=== PATIENT | male | born 1955 ===

== ENCOUNTER 2023-11-01 23:26 | Inpatient (IN) | payer MEDICARE ==
[~2023-11-01] VITALS: Ht 172.7 cm; Wt 55.4 kg
[2023-11-02] VITALS (230 sets, daily range): BP systolic 10–139; BP diastolic 61–86; PULSE 71–89; TEMP 97.8–99.9; O2SAT 72–100
--- NOTE | 2023-11-02 02:45 | NUR ---
Vancomycin Initial Dosing Pharmacy Note Ordering provider: Cece Tucker MD Indication/duration: LLL HAP x 7 days Relevant comorbidities: HTN, DM, COPD, Chronic hypoxic resp. failure LABS: (From OSH) WBC = 15.3, SCr = 0.7, Tmax = 102.3 Recommendation: Will draw troughs and follow levels. Loading dose: 1.25 grams at OSH on 11/01 @ 21:29 Maintenance dose: 1 gram every 12 hours Trough goal: 15-20 ug/mL
[2023-11-02] MEDS ORDERED: COREG 3.123.125 MG/T PO (03:06)
[2023-11-02] MEDS ORDERED: INSULIN LI100 UNIT/2 (03:07)
[2023-11-02] MEDS ORDERED: BASAGLAR K100 UNIT/1 SQ (03:07)
[2023-11-02] MEDS ORDERED: LIPITOR 40MG TA40 MG PO (03:08)
[2023-11-02] MEDS ORDERED: FLOMAX 0.40.4 MG/CAP PO (03:09)
[2023-11-02] MEDS ORDERED: INSULIN LI100 UNIT/1 (03:10)
[2023-11-02] MEDS ORDERED: ASPIRIN 81M81 MG/TA2 PO (03:10)
[2023-11-02] MEDS ORDERED: LEVEMIR FLEX100 U/ML (03:10)
[2023-11-02] MEDS ORDERED: LANTUS SOLOS100 U/ML SQ (03:19)
[2023-11-02] MEDS ORDERED: HUMALOG KW200 UNIT/1 SQ (03:20)
[2023-11-02 04:22] LABS: TRICYCLIC ANTIDEPRESS URINE NEGATIVE
[2023-11-02 06:26] LABS: HEMOGLOBIN 11.3 g/dl (13.5-18.0); MEAN CELL VOLUME 86 fl (80.0-100.0); MEAN CORPUSCULAR HEMOGLOBIN 28 pg (27-31); MEAN CORPUSCULAR HGB CONC 33 g/dl (33.0-37.0); MEAN PLATELET VOLUME 9.4 fl (7.4-10.4); PLATELET COUNT 406 K/mm3 (130-400); RED BLOOD COUNT 4.02 M/mm3 (4.20-5.60); REDCELL DISTRIBUTION WIDTH-CV 15.5 % (11.5-14.5)
[2023-11-02 06:35] LABS: CALCIUM 7.8 mg/dL (8.4-10.2); CREATININE, serum 0.77 mg/dL (0.72-1.25); HEMATOCRIT 34.6 % (42.0-52.0); POTASSIUM 3.6 mmol/L (3.5-4.5)
[2023-11-02 06:49] LABS: BAND 28 % (0-10); NEUTROPHILS 55 % (42.0-75.2); PLATELET ESTIMATE INCREASED (NORMAL)
[2023-11-02 06:50] LABS: ANISOCYTOSIS 1+; LYMPHOCYTE 13 % (20.0-51.0)
--- NOTE | 2023-11-02 07:00 | NUR ---
Report received from KEVIN Joe. Reviewed gtt rate for levo. PICC being inserted at this time. Reviewed other IV gtt rates. Reviewed labs. Reviewed POC. Call lauryn bobby.
--- NOTE | 2023-11-02 14:56 | NUR ---
opinion polls survey worker was contacted to speak with patient regarding advance directives. SW met with patient with his nurse. Patient expressed he would like chest compressions if his heart were to stop but he did not wish to be intubated. Nurse expressed she will put in verbal orders reflecting patient's wishes. Patient confirmed he lives in [place] with his Sendy, P# [phone]. PCP is Dr. Lane in [place]. Preferred pharmacy is [facility] in [place] and patient has had no difficulties affording medications. Insurance is [employer]. Patient does not have a DPOA-HC and does not wish to complete one during his hospital stay. Patient has a cane that he utilizes as needed at home. Patient reports prior to hospitalization he was independent with ADLS. Patient reports he has a car to use for transportation to go to and from follow up appointments but patient does not drive at night. Patient would like to return home at time of discharge. Discharge Plan: Home
--- NOTE | 2023-11-02 16:00 | NUR ---
REPORT RECEIVED FROM KEVIN BAKER IN [facility] APPROX 1525. PT ON THE FLOOR APPROX 1600 VIA WHEELCHAIR WITH PERSONAL BELONGINGS. PT TRANSFERRED TO BED SBA THEN TO BATHROOM AND HAD A LARGE FORMED BOWEL MOVEMENT. PT ON 3L NASAL CANNULA AND LR @ 100 MLS/HR IN PURPLE PORT OF PICC. BOTH PICC PORTS FLUSH WITH BLOOD RETURN. PT HAS AN 18G IN LEFT AC, NOTHING RUNNING AT THIS TIME. VITALS STABLE AT THIS TIME. COARSE CRACKLES IN BILATERAL LUNG BASES. DEXCOM TO UPPER LEFT ARM. PT DENIES PAIN OR DISCOMFORT AT THIS TIME. MED REC DONE, PT HAS PERSONAL MEDS IN SUITCASE AND PHARMACY NOTIFIED. PHARMACY TOLD THIS NURSE TO PUT MEDS IN PTS BIN FOR THEM TO COLLECT. PT ORDERING DINNER AND DENIES NEEDS AT THIS TIME. BED IN LOWEST POSITION, CALL LIGHT IN REACH, BED ALARM ON
--- NOTE | 2023-11-02 16:07 | NUR ---
Report called to Romana BROWN on the 3rd floor. Kandace answered. Pt transferred via wheelchair to room 310.
--- NOTE | 2023-11-02 21:00 | NUR ---
Patient resting in bed. Denies any pain or needs at this time. Assessment complete. PICC in right upper arm infusign with no complications. IV in left AC flushes easily with no complications. Call light and personal items in reach. Bed in low position and bed alarm on.
[2023-11-03] VITALS (11 sets, daily range): BP systolic 107–142; BP diastolic 67–79; PULSE 67–89; TEMP 97.4–99.5
--- NOTE | 2023-11-03 06:00 | NUR ---
Patient resting in bed with eyes closed. Respirations even and unlabored. No signs of pain at this time. Call light and personal items in reach. Bed in low position and bed alarm on.
[2023-11-03 06:30] LABS: BASO # 0.1 K/mm3 (0.0-0.2); BASO % 0.6 % (0.0-2.0); EOS # 0.1 K/mm3 (0.0-0.7); EOS % 0.6 % (0.0-4.0); GRAN # 16.3 K/mm3 (1.4-6.5); GRAN % 83.8 % (42.2-75.2); LYMPH # 1.8 K/mm3 (1.2-3.4); LYMPH % 9.3 % (20.0-51.0); MEAN CELL VOLUME 87 fl (80.0-100.0); MEAN CORPUSCULAR HGB CONC 32 g/dl (33.0-37.0); MEAN PLATELET VOLUME 9.5 fl (7.4-10.4); MONO # 0.9 K/mm3 (0.1-0.6); MONO % 4.4 % (1.7-9.3); PLATELET COUNT 351 K/mm3 (130-400); RED BLOOD COUNT 3.26 M/mm3 (4.20-5.60); REDCELL DISTRIBUTION WIDTH-CV 15.9 % (11.5-14.5)
[2023-11-03 06:34] LABS: HEMATOCRIT 28.4 % (42.0-52.0); HEMOGLOBIN 9.2 g/dl (13.5-18.0); MEAN CORPUSCULAR HEMOGLOBIN 28 pg (27-31)
[2023-11-03 06:43] LABS: ALBUMIN 1.7 gm/dL (3.4-4.8); BILIRUBIN,TOTAL 0.5 mg/dL (0.2-1.2); CALCIUM 7.6 mg/dL (8.4-10.2); CREATININE, serum 0.73 mg/dL (0.72-1.25); POTASSIUM 3.7 mmol/L (3.5-4.5); TOTAL PROTEIN 4.5 gm/dL (6.2-8.1)
--- NOTE | 2023-11-03 08:30 | NUR ---
Patient is resting in bed, alert and oriented, getting fluids per ordesrs, receiving 3L O2 NC. Assessment completed, meds provided, no further needs at this time. Call light within reach.
--- NOTE | 2023-11-03 10:13 | NUR ---
Trim Setter Helper collaborated with Treatment Team to assess Patient for discharge readiness. Patient is assessed to need continued treatment and will remain INPT at this time. Patient is anticipated to discharge tomorrow pending AM rounding assessment.
--- NOTE | 2023-11-03 14:57 | NUR ---
pin worker was notified patient needs a walker. LUIS met with patient and he approved health and social care teacher to send the request to [facility]. LUIS presented the DME order to Dr. Tucker, doctor signed order. LUIS faxed supporting documentation and DME order to [facility]. LUIS was notified patient is scheduled to discharge tomorrow.
--- NOTE | 2023-11-03 20:30 | NUR ---
Patient resting in bed. Denies any pain or needs at this time. Assessment complete. PICC in right upper arm flushes easily through both ports. Call light and personal items in reach. Bed in low position and bed alarm on.
[2023-11-04] VITALS (7 sets, daily range): BP systolic 118–150; BP diastolic 76–84; PULSE 87–90; TEMP 97.8–98.4
--- NOTE | 2023-11-04 05:58 | NUR ---
Patient resting in bed with eyes closed. Respirations even and unlabored. No signs of pain or needs at this time. Patient had an uneventful night. Call light and personal items in reach. Bed in low position and bed alarm on.
[2023-11-04 06:47] LABS: BASO # 0.1 K/mm3 (0.0-0.2); BASO % 0.5 % (0.0-2.0); EOS # 0.2 K/mm3 (0.0-0.7); EOS % 1.5 % (0.0-4.0); GRAN # 10.5 K/mm3 (1.4-6.5); GRAN % 79.4 % (42.2-75.2); LYMPH # 1.7 K/mm3 (1.2-3.4); LYMPH % 12.5 % (20.0-51.0); MEAN CELL VOLUME 86 fl (80.0-100.0); MEAN CORPUSCULAR HGB CONC 32 g/dl (33.0-37.0); MEAN PLATELET VOLUME 9.4 fl (7.4-10.4); MONO # 0.7 K/mm3 (0.1-0.6); MONO % 5.2 % (1.7-9.3); PLATELET COUNT 341 K/mm3 (130-400); RED BLOOD COUNT 3.43 M/mm3 (4.20-5.60); REDCELL DISTRIBUTION WIDTH-CV 15.8 % (11.5-14.5)
[2023-11-04 06:50] LABS: HEMATOCRIT 29.6 % (42.0-52.0); HEMOGLOBIN 9.5 g/dl (13.5-18.0); MEAN CORPUSCULAR HEMOGLOBIN 28 pg (27-31)
[2023-11-04 07:04] LABS: ALBUMIN 1.7 gm/dL (3.4-4.8); BILIRUBIN,TOTAL 0.6 mg/dL (0.2-1.2); CALCIUM 7.8 mg/dL (8.4-10.2); CREATININE, serum 0.8 mg/dL (0.72-1.25); TOTAL PROTEIN 4.9 gm/dL (6.2-8.1)
--- NOTE | 2023-11-04 10:59 | NUR ---
Patient alert and oriented x4. Shift assessment complete. PCT notified this nurse this morning that patient was 83% on 3L. O2 titrated to 4L, O2 increased to 92%. Patient's mood slightly irritable, but improved when provided fresh coffee. Tolerated morning medication well. PICC line to right upper arm flushing well and has adequate blood return. Flu vaccine administered to left deltoid, patient tolerated well. Patient denies pain or discomfort at this time. Currently in bed with call light in reach, all needs met at this time.
[2023-11-04] MEDS ORDERED: OMNICEF 300MG300 MG PO (11:58)
[2023-11-04] MEDS ORDERED: DOXYCYCLINE HY100 MG PO (11:59)
[2023-11-04] MEDS ORDERED: PROAIR HFA0.09 MG/AC IH (12:06)
[2023-11-04] MEDS ORDERED: RT ADVAIR 228 DISKUS IH (12:06)
--- NOTE | 2023-11-04 14:24 | NUR ---
Discharge instructions discussed with patient and daughter at bedside. Discussed follow-up appointments and x-ray, new medications, education packets, and PICC removal education. Patient and daughter verbalized understanding. PICC removal site CDI. Telemetry off. Patient escorted out by staff and family via wheelchair.
--- NOTE | 2023-11-04 14:31 | NUR ---
Photo Stylist contacted [facility] and confirmed walker was ready for pharmacy picking technician. SW provided location and phone number to patient's family who advised they were agreeable to pick it up.
== END 2023-11-04 14:30 | disposition home or self-care (01) | DRG 871 ==
LOC: IMCU 23:26 → MEDICAL 11-02 01:09 → ICU 11-02 01:09 → MEDICAL 11-02 16:17
PROVIDERS: Nurse Practitioner Family; ADMIT Internal Medicine
PROC: 02HV33Z Insertion of Infusion Device into Superior Vena Cava, Percutaneous Approach (ICD-10-PCS; principal; 2023-11-02)
PROC: 3E043XZ Introduction of Vasopressor into Central Vein, Percutaneous Approach (ICD-10-PCS; 2023-11-02)
DX: A41.01 Sepsis due to Methicillin susceptible Staphylococcus aureus (principal); E43 Unspecified severe protein-calorie malnutrition; G93.41 Metabolic encephalopathy; J18.9 Pneumonia, unspecified organism; R65.21 Severe sepsis with septic shock; Z68.1 Body mass index [BMI] 19.9 or less, adult; I47.10 Supraventricular tachycardia, unspecified; J96.11 Chronic respiratory failure with hypoxia; Z66 Do not resuscitate; N40.0 Benign prostatic hyperplasia without lower urinary tract symptoms; J44.9 Chronic obstructive pulmonary disease, unspecified; I10 Essential (primary) hypertension; F19.10 Other psychoactive substance abuse, uncomplicated; I08.1 Rheumatic disorders of both mitral and tricuspid valves; D64.9 Anemia, unspecified; I27.20 Pulmonary hypertension, unspecified; E11.9 Type 2 diabetes mellitus without complications; E78.5 Hyperlipidemia, unspecified; Z99.81 Dependence on supplemental oxygen; Z79.4 Long term (current) use of insulin; Z79.82 Long term (current) use of aspirin; Z87.891 Personal history of nicotine dependence; Z23 Encounter for immunization
CPT/HCPCS: C1751; C9113; J1650; J1815; J2543; J3370; J7030; J7050; J7060; J7120